=== PATIENT | male | born 1955 | race Caucasian/White ===

== ENCOUNTER 2023-09-08 16:22 | Inpatient (IN) | payer OTHER, SELFPAY ==
[2023-09-08 13:29] VITALS: BP 123/77
--- NOTE | 2023-09-08 13:45 | ED.GENMED ---
History of Present Illness
<Jorge A Merlos PA-C - Last Filed: 09/08/23 17:29>
General
Chief Complaint: Skin Problem
Source: patient
Time Seen by Provider: 09/08/23 13:35
Travel History
Have you had any contact with someone who has COVID-19?: No
Do you have any symptoms of coronavirus? Fever > 100 degrees, chills, cough, shortness of breath, sore throat, loss of taste or smell, muscle aches, or headache?: No
History of Present Illness
History of Present Illness:
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 Patient reports that in June he had a visit with his perlite grinder who was injecting his elbow
with what the patient believes to be a steroid and notes that the area had been doing quite well. He states in November on a follow-up visit his perlite grinder was happy with how the elbow looked so did not provide the patient with any injection at that
time. Over the last 2 months patient started noticing increased redness and a small opening to the area and over the last week or so noticed increased drainage. Patient attempted to make an appointment with his perlite grinder but was unable to be
seen but his perlite grinder did call him in a prescription for Bactrim last night and patient is taking 2 total doses of this. He went and saw his primary care provider today who recommended the patient come to the emergency department for labs and
imaging. Patient denies any fevers, chills, rigors. He notes he is able to range of motion his left upper extremity without any significant pain. Denies any trauma or any other concerns.
Past History
<Jorge A Merlos PA-C - Last Filed: 09/08/23 17:29>
Past History
ED Past Medical History: IDDM
ED Past Surgical History: Other
Social History
Tobacco: Non-smoker
Alcohol: None
Drug: None
Personal:
Living: with family
Review of Systems
<Jorge A Merlos PA-C - Last Filed: 09/08/23 17:29>
Review of Systems
All Other Systems: ROS reviewed and negative except as documented in HPI and ROS
Phy Exam
<Jorge A eMrlos PA-C - Last Filed: 09/08/23 17:29>
Physical Exam
Physical Exam:
GENERAL: Alert , in no apparent distress
EYE: conjunctiva clear
Head: Normocephalic atraumatic
NECK: Supple,
ENT: mmm.
LUNGS: no acute respiratory distress
NEUROLOGICAL: Alert and oriented
SKIN: Warm and dry, left elbow along the olecranon and has erythema with a small open wound that is circumferential and measures proximately 8 mm in size, small purulent drainage is expressed when palpated but the surrounding tissues are dry.
MUSCULOSKELETAL: well perfused. Patient allows for full active and passive range of motion of the left elbow without any significant pain. Extremities otherwise warm and well-perfused and neurovascularly intact.
PSYCH: Normal and appropriate interaction.
Scores
<Jorge A Merlos PA-C - Last Filed: 09/08/23 17:29>
Heart Failure Risk
Heart Failure Risk Score: Not Applicable
Heart Score for Chest Pain Patients
STEMI patient?: Not applicable
Withdrawal Assessment of Alcohol
Withdrawal Assessment Completed?: Not applicable
Course
<ANNE-MARIE Parrish Last Filed: 09/08/23 17:29>
Orders/Labs/Results
Orders:
Orders
09/08/23 13:44
CR Elbow - Left Min 3 Views Urgent
Comment:
Reason For Exam: infection overlying olecranon
09/08/23 14:10
Basic Metabolic Panel Urgent
CRP [C-Reactive Protein] Urgent
Complete Blood Count/With Diff Urgent
ESR [Erythrocyte Sed Rate] Urgent
Wound Culture [Wound/Abscess/Other Culture] Urgent
YOMAIRA Source: Elbow
Specimen Description: Left
Date Specimen was Collected: 09/08/23
Time Specimen was Collected: 14:07
09/08/23 14:46
Piperacillin/Tazo 3.375 Gram [Zosyn] 3.375 gram in 50 ml IV NOW
09/08/23 14:51
Vancomycin [Vancocin] 2,000 mg 0.9% Sodium Chloride 500 ml [Nss] 500 ml IV NOW
09/08/23 Dinner
2000 calorie (17 carb) Diabetic
At Your Request: Limited Participation
09/08/23 15:53
INFECTIOUS DISEASE CONSULT Routine
Consulting Provider: Miriam Sutton
Was physician already notified: Yes
ORTHOPEDIC CONSULT Routine
Consulting Provider: Zachary Swenson
Was physician already notified: Yes
09/08/23 16:05
Admit/Transfer Patient As Directed
Co-Sign Provider:
Level of Care: Inpatient admission
Assign to:: Medical/Surgical
Physician / Group: Zoey
Diagnosis: Left Elbow Wound
Reason for Hospitalization: Ortho consult, ID consult, IV abx
Expected length of stay greater than two midnights?: Yes
ELOS- Estimated Length of Stay in days: 3
I certify the patient meets the requirements for IP care: Yes
09/08/23 16:09
Code Status As Directed
Resuscitation Status: Full Code
09/08/23 17:54
Acetaminophen [Tylenol] 650 mg PO Q4HPRN PRN
Dextrose 50%-Water [Dextrose 50% Syringe] 12.5 grams IV [id number] PRN
Glucagon [GlucaGen] 1 mg IM PRN PRN
Insulin Aspart Corrective Low [Novolog Flexpen-Low Resistance] See Protocol SC AC
09/08/23 17:54
Activity As Directed
Activity Level: Out of Bed-Early Mobility
With Assistance
Bedside Glucose Monitoring As Directed
Frequency: AC&HS
Comment: Change to q6h if pt on TPN, tube feeding or not eating
I&O [Intake/ Output] As Directed
Frequency: q12h
Vital Signs As Directed
Frequency: Per unit guidelines
Weight As Directed
Frequency: Daily
DX Deep Vein Thrombosis Video Routine
09/08/23 18:00
Enoxaparin Sodium [Lovenox] 40 mg SC QPM
09/08/23 22:00
Metoprolol Xl [Toprol Xl] 25 mg PO HS
Piperacillin/Tazo 3.375 Gram [Zosyn] 3.375 gram in 50 ml IV Q6H
Tamsulosin [Flomax] 0.4 mg PO HS
09/09/23 07:03
Basic Metabolic Panel IN AM
Complete Blood Count/No Diff IN AM
Glycohemoglobin (HgbA1c) IN AM
09/11/23 12:24
MR Left Up Ext Joint W/o & W Routine
Reason For Exam: left elbow wound, possible osteo
Recent pill cam endoscopy?: No
Abnormal Lab Results
09/08/23
14:10
RBC 4.33 L 10^6/uL
(4.70-6.10)
MCV 95.2 H fL
(80.0-94.0)
MCH 31.9 H pg
(27.0-31.0)
MPV 10.5 H fL
(7.4-10.4)
Absolute Monos (auto) 0.9 H 10^3/uL
(0.1-0.6)
Monocytes % 11.7 H %
(1.7-9.3)
ESR 54 H mm/hour
(0-20)
Glucose 106 H mg/dl
(70-99)
C-Reactive Protein 23.90 H mg/L
(0.0-10.00)
09/08/23 14:10
09/08/23 14:10
Vital Signs
Initial and Last Documented VS:
Initial Vital Signs
Temp Pulse Resp BP Pulse Ox
97.2 F 70 16 123/77 98
09/08/23 13:29 09/08/23 13:29 09/08/23 13:29 09/08/23 13:29 09/08/23 13:29
Last Documented Vital Signs
Temp Pulse Resp BP Pulse Ox
97.6 F 78 18 146/79 98
09/11/23 14:30 09/11/23 14:30 09/11/23 14:30 09/11/23 14:30 09/11/23 14:30
<Jen Chan MD - Last Filed: 09/11/23 18:41>
Orders/Labs/Results
Orders:
Orders
09/08/23 13:44
CR Elbow - Left Min 3 Views Urgent
Comment:
Reason For Exam: infection overlying olecranon
09/08/23 14:10
Basic Metabolic Panel Urgent
CRP [C-Reactive Protein] Urgent
Complete Blood Count/With Diff Urgent
ESR [Erythrocyte Sed Rate] Urgent
Wound Culture [Wound/Abscess/Other Culture] Urgent
YOMAIRA Source: Elbow
Specimen Description: Left
Date Specimen was Collected: 09/08/23
Time Specimen was Collected: 14:07
09/08/23 14:46
Piperacillin/Tazo 3.375 Gram [Zosyn] 3.375 gram in 50 ml IV NOW
09/08/23 14:51
Vancomycin [Vancocin] 2,000 mg 0.9% Sodium Chloride 500 ml [Nss] 500 ml IV NOW
09/08/23 Dinner
2000 calorie (17 carb) Diabetic
At Your Request: Limited Participation
09/08/23 15:53
INFECTIOUS DISEASE CONSULT Routine
Consulting Provider: Miriam Sutton
Was physician already notified: Yes
ORTHOPEDIC CONSULT Routine
Consulting Provider: Zachary Swenson
Was physician already notified: Yes
09/08/23 16:05
Admit/Transfer Patient As Directed
Co-Sign Provider:
Level of Care: Inpatient admission
Assign to:: Medical/Surgical
Physician / Group: Sheu
Diagnosis: Left Elbow Wound
Reason for Hospitalization: Ortho consult, ID consult, IV abx
Expected length of stay greater than two midnights?: Yes
ELOS- Estimated Length of Stay in days: 3
I certify the patient meets the requirements for IP care: Yes
09/08/23 16:09
Code Status As Directed
Resuscitation Status: Full Code
09/08/23 17:54
Acetaminophen [Tylenol] 650 mg PO Q4HPRN PRN
Dextrose 50%-Water [Dextrose 50% Syringe] 12.5 grams IV [id number] PRN
Glucagon [GlucaGen] 1 mg IM PRN PRN
Insulin Aspart Corrective Low [Novolog Flexpen-Low Resistance] See Protocol SC AC
09/08/23 17:54
Activity As Directed
Activity Level: Out of Bed-Early Mobility
With Assistance
Bedside Glucose Monitoring As Directed
Frequency: AC&HS
Comment: Change to q6h if pt on TPN, tube feeding or not eating
I&O [Intake/ Output] As Directed
Frequency: q12h
Vital Signs As Directed
Frequency: Per unit guidelines
Weight As Directed
Frequency: Daily
DX Deep Vein Thrombosis Video Routine
09/08/23 18:00
Enoxaparin Sodium [Lovenox] 40 mg SC QPM
09/08/23 22:00
Metoprolol Xl [Toprol Xl] 25 mg PO HS
Piperacillin/Tazo 3.375 Gram [Zosyn] 3.375 gram in 50 ml IV Q6H
Tamsulosin [Flomax] 0.4 mg PO HS
09/09/23 07:03
Basic Metabolic Panel IN AM
Complete Blood Count/No Diff IN AM
Glycohemoglobin (HgbA1c) IN AM
09/11/23 12:24
MR Left Up Ext Joint W/o & W Routine
Reason For Exam: left elbow wound, possible osteo
Recent pill cam endoscopy?: No
Abnormal Lab Results
09/08/23
14:10
RBC 4.33 L 10^6/uL
(4.70-6.10)
MCV 95.2 H fL
(80.0-94.0)
MCH 31.9 H pg
(27.0-31.0)
MPV 10.5 H fL
(7.4-10.4)
Absolute Monos (auto) 0.9 H 10^3/uL
(0.1-0.6)
Monocytes % 11.7 H %
(1.7-9.3)
ESR 54 H mm/hour
(0-20)
Glucose 106 H mg/dl
(70-99)
C-Reactive Protein 23.90 H mg/L
(0.0-10.00)
09/08/23 14:10
09/08/23 14:10
Vital Signs
Initial and Last Documented VS:
Initial Vital Signs
Temp Pulse Resp BP Pulse Ox
97.2 F 70 16 123/77 98
09/08/23 13:29 09/08/23 13:29 09/08/23 13:29 09/08/23 13:29 09/08/23 13:29
Last Documented Vital Signs
Temp Pulse Resp BP Pulse Ox
97.6 F 78 18 146/79 98
09/11/23 14:30 09/11/23 14:30 09/11/23 14:30 09/11/23 14:30 09/11/23 14:30
<Jorge A Merlos PA-C - Last Filed: 09/08/23 17:29>
MDM/Problems Addressed
Differential Diagnosis Includes:
Cellulitis, abscess, minimal concern for septic joint given no fevers and patient allows for full range of motion without any difficulty
MDM/Problems Addressed:
68-year-old male presenting the emergency for evaluation of a wound that is for the most part chronic but with an acute potential infection over the last few weeks. Patient is only taken 2 total doses of Bactrim. He is afebrile and has full range
of motion of the left elbow as my suspicion for septic joint is pretty minimal. I was able to take a wound culture of the small purulence expressed. Will check labs including inflammatory markers and an x-ray of the left elbow. Disposition
pending.
Chronic conditions affecting care: DM
<Jorge A Merlos PA-C - Last Filed: 09/08/23 17:29>
*Radiology
Radiology exam reviewed: preliminary read by ED provider (Degenerative changes versus bony demineralization)
*Pulse Oximetry
Patient hypoxic: no
*Critical Care Note
Total Time (30-74mins, 75-104mins- exclusive of procedures): Not Applicable
<ANNE-MARIE Parrish Last Filed: 09/08/23 17:29>
Patient Management
Discussion with other providers: Hospitalist
Escalation/DeEscalation of care consider admission/obs:
There are some concerns on patient's x-ray for possible osteomyelitis versus degenerative changes versus chronic changes from patient's necrobiosis. Given his acute symptoms will treat with IV antibiotics. Hospitalist is aware and accepts for
continued evaluation and treatment.
ED Attending Note
<ANNE-MARIE Parrish Last Filed: 09/08/23 17:29>
-
Portions of this chart may have been created with voice recognition software.� Occasional wrong word or��sound alike� substitutions may have occurred due to the inherent limitations of voice recognition software.
<Jen Chan MD - Last Filed: 09/11/23 18:41>
ED Attending Note
Patient seen and examined by attending physician: Yes
I performed the substantive portion of visit, reviewed & personally made and approve the management plan that is documented in note by myself or NATO.: Yes
ED Attending Note:
68 yr old male with L elbow redness and drainage assoc with mild pain for months...getting worse and now foul smelling. Doctor called in bactrim over phone, seen by pcp today and referred to ED for presumed infx. Pt denies
f/c/numb/tingling/trauma. He reports hx of injxs into elbow by derm q few months (PCP notes for necrobiosis?), last one a few months ago. Pt with hx of DM. On exam, L elbow at olecranon area with redness/sl warmth, pinpoint open area with sl
drainage (not foul smelling at this time). No sreaking, no fluctuance/crepitus. FROM of elbow without pain. Mild/mod ttp. Suspect cellulitis possible septic bursitis, less likely septic arthritis given relatively painless ROM. Will need iv abx,
ortho/ID to see (not emergently), hospiatlist admit.
Discharge Plan
Departure
Patient Disposition: Admit
Date of Disposition: 09/08/23
Time of Disposition: 14:48
Presentation/result/management discussed w/ accepting MD/DO: Hospitalist
Discharge Problem:
Cellulitis of left elbow, Abscess of left elbow
Interventions
Interventions:
*Risk Screen - Suicide Last Done: 09/08/23 13:29
*General Assessment Last Done: 09/08/23 13:29
*Neglect/Abuse Screening Last Done: 09/08/23 13:29
ED- Fall Risk Assessment Last Done: 09/08/23 14:20
*ED COVID-19 Vaccine History Last Done: 09/08/23 14:20
*Nursing Disposition Last Done: 09/08/23 17:44
ED-Skin Assessment Last Done: 09/08/23 14:20
Discharge Date and Time
Discharge Date/Time: 09/08/23 17:45
[2023-09-08 14:20] VITALS: BMI 31.8
[2023-09-08 14:32] LABS: % Basophils 0.8 % (0-2); % Eosinophils 1.2 % (0-6); % Immature Granulocytes 0.1 % (0-0.5); % Lymphocytes 28.6 % (20.5-51.1); % Monocytes 11.7 % (1.7-9.3); % Neutrophils 57.6 % (42.2-75.2); Absolute Basophils 0.1 10^3/uL (0-0.2); Absolute Eosinophils 0.1 10^3/uL (0-0.7); Absolute Lymphocytes 2.2 10^3/uL (1.2-3.4); Absolute Monocytes 0.9 10^3/uL (0.1-0.6); Absolute Neutrophils 4.3 10^3/uL (1.4-6.5); Hematocrit 41.2 % (39.0-52.0); Hemoglobin 13.8 g/dL (13.0-18.0); Mean Corp Hgb Conc. 33.5 g/dL (33.0-37.0); Mean Corpuscular Hgb 31.9 pg (27.0-31.0); Mean Corpuscular Volume 95.2 fL (80.0-94.0); Mean Platelet Volume 10.5 fL (7.4-10.4); Nucleated Red Blood Cells % 0 % (-); Platelet Count 231 10^3/uL (130-400); Red Blood Cell Count 4.33 10^6/uL (4.70-6.10); Red Cell Dist. Width 12.5 % (11.5-14.5); White Blood Cell Count 7.5 10^3/uL (4.8-10.8)
[2023-09-08 14:47] LABS: Blood Urea Nitrogen 20 mg/dl (9-20); Calcium 9.3 mg/dl (8.4-10.2); Carbon Dioxide 27 mmol/L (22-30); Chloride 103 mmol/L (98-107); Estimated Creatinine Clearance 94 ml/min; Glucose 106 mg/dl (70-99); Potassium 4.5 mmol/L (3.5-5.1); Sodium 135 mmol/L (135-145); eGFR > 60.00
[2023-09-08 14:56] LABS: Erythrocyte Sed Rate 54 mm/hour (0-20)
[2023-09-08] MEDS: ZOSYN 50 IV ×2 (15:15→22:11)
[2023-09-08] MEDS: VANCOCIN 540 MG IV (15:36)
--- NOTE | 2023-09-08 16:13 | HPS.HSE ---
Addendum entered and electronically signed by Lazaro Greer MD 09/08/23 18:16:
I saw and examined the patient.
The CORPORATE ETHICS OFFICER or PA's note was reviewed and I agree with the note.
Comment:
68M insulin-dependent type II diabetes, left Elbow necrobiosis, CHF p/w oozing wound left elbow. Reports Left elbow necrobiosis several years receiving steroid injections every [address] judge. Last injection 2 months ago. Reports
elbow oozing white purulent fluid for a few weeks. Referred to ED by PCP after office visit. ED XR concerning for possible osteomyelitis Soft tissue infection, possible septic arthritis/bursitis though less likely given overall clinical picture.
VSS afebrile. Non-toxic appearing. Elbow pain mild. Denies fever chills nausea vomiting diarrhea constipation. Labs unremarkable.
Physical Exam
General: No pallor, cyanosis, or jaundice.
HEENT: Throat clear. PERRLA Normocephalic atraumatic
NECK: Supple. No JVD Carotid Bruits
RESPIRATORY: Lungs clear to auscultation. No crackles wheezes stridor
CVS: S1, S2 normal. RRR. No murmur, rub or gallop.
ABDOMEN: Soft, non-tender. No distension. BS+/normal.
EXTREMITIES: No peripheral cyanosis or edema. Left elbow erythema superficial pustule noted
LABORER GOLF COURSE: AOx3. 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
#Left Elbow Wound likely superficial infection
#Possible Osteomyelitis noted on CXR
#Diabetes
#hx hF
Follow up MRI
cont empiric abx for now
ID eval
Ortho eval
glycemic control
cont home metoprolol
Original Note:
Family Physician
-
Family Physician: Aydin Allen
Chief Complaint
-
Left Elbow Wound
History of Present Illness
Patient is a 68 year old male with PMH of insulin-dependent type II diabetes, necrobiosis, and congestive heart failure with recovered ejection fraction who presents to the ED complaining of oozing from a wound on his left elbow. Patient says he has
had this wound for several years and was receiving steroid injections every [address] judge. His last injection was about 2 months ago. Patient reports that the wound has been oozing white purulent fluid for a few weeks. He called
his municipal court judge yesterday who is on vacation. He then called his PCP who prescribed Bactrim. He saw his PCP in the office today who sent him to the ED. He admits to mild pain and achiness with movement of the elbow joint. He has felt at his
baseline health otherwise and says his blood sugars have been controlled. He denies fever, chills, sweats, reduced range of motion of left elbow, and known wounds elsewhere on his body.
Medical History
Past Medical History
Past Medical History: Reports Other
Additional Past Medical History:
Diabetes Mellitus
Chronic Heart Failure with Recovered EF
BPH
Past Surgical History: Reports Other
Additional Past Surgical History:
Left Eye Surgery
Social History
Tobacco: Non-smoker
Alcohol: Occasional
Family History
Family History: Not pertinent
Allergies / Home Medications
Allergies reflects when Allergies were last updated in [facility].
Home Medications with original date entered in [facility]
Allergy/Medication List:
Allergies
Allergy/AdvReac Type Severity Reaction Status Date / Time
bee venom protein (honey bee) Allergy Swelling Verified 09/08/23 13:29
shellfish derived Allergy Swelling Verified 09/08/23 13:28
Home Medications
aspirin 81 mg tablet,delayed release 162 mg PO DAILY Blood Clot Prevention/Tx 09/08/23
brimonidine 0.2 % eye drops 1 drp LEFT EYE BID Eye Condition 09/08/23
insulin glargine 100 unit/mL (3 mL) subcutaneous pen (Basaglar KwikPen U-100 Insulin) 35 unit SC HS Diabetes 09/08/23
metoprolol succinate 25 mg tablet,extended release 24 hr (Toprol XL) 25 mg PO HS Blood Pressure 09/08/23
prednisolone acetate 1 % eye drops,suspension 1 drp LEFT EYE DAILY Eye Condition 09/08/23
sulfamethoxazole 800 mg-trimethoprim 160 mg tablet (Bactrim DS) 1 tab PO BID Infection 09/08/23
tamsulosin 0.4 mg capsule (Flomax) 0.4 mg PO HS Urinary Issue 09/08/23
Review of Systems
-
A 12 point ROS was completed and negative except as noted: Yes
Respiratory: Denies Cough or Trouble Breathing
Cardiac: Denies Chest Pain or Palpitations
Physical Exam
Vital Signs
Vital Signs
Temp Pulse Resp BP Pulse Ox
97.2 F 70 16 123/77 98
09/08/23 13:29 09/08/23 13:29 09/08/23 13:29 09/08/23 13:29 09/08/23 13:29
Physical Exam
General: Comfortable and Conversant
HEENT: NormoCephalic and Moist mucous membranes
Respiratory: Clear and Non Labored Respirations
Cardiac: S1/S2 and Regular Rhythm
GI: Soft and Non Tender
Rectal: Deferred by Provider
Musculoskeletal: No Clubbing, No Cyanosis, No Edema and Other (Full range of motion left elbow)
Skin: Warm, Dry and Other (Left elbow with small open area draining slightly purulent material; Surrounding discoloration of left elbow appears more chronic than acute)
Neuro: Awake, Alert, Oriented and Nonfocal/grossly intact
Laboratory Results
-
09/08/23 14:10
09/08/23 14:10
Data Reviewed
-
Diagnostic Radiology: Report Reviewed by me
Lab Data: Labs Reviewed by me
Impression/Plan
-
Left Elbow Wound
-X-ray raises concern for underlying osteomyelitis
-Consult Orthopedics
-Consult Infectious Disease
-Check Left Upper Ext MRI
-Continue vancomycin and zosyn
Diabetes Mellitus, Type II
-Check HgbA1c
-Continue Lantus
-Monitor sugars and continue coverage insulin
Chronic Heart Failure with Recovered EF
-Continue Toprol XL
BPH
-Continue Flomax
DVT proph: Lovenox
[2023-09-08 17:30] VITALS: BMI 30.5
[2023-09-08 17:49] VITALS: BMI 30.5
[2023-09-08 17:53] VITALS: BP 154/98
[2023-09-08 17:55] VITALS: BMI 30.5
[2023-09-08 18:00] LABS: Glucose - Point of Care 84 mg/dl (70-99)
[2023-09-08] MEDS: NOVOLOG FLEXPEN-LOW RESISTANCE SC (18:00)
[2023-09-08] MEDS: LOVENOX 40 MG SC (18:09)
--- NOTE | 2023-09-08 18:15 | W.PN.UPDATE ---
Update Note
Progress Note Update
Full consult dictated. 68 yo male presents to ER today with left olecranon draining wound for 2 weeks. Has been treating with his senior administrative services officer for years and has been receiving multiple cortisone injections about the left olecranon region for
'necrobiosis.' He denies having a biopsy of the region in the past. He called his senior administrative services officer when he developed drainage. He spoke to the senior administrative services officer and was not seen. When he contacted the senior administrative services officer again, his doctor was on vacation.
He was seen by his PCP who referred him to an ER. He denies fever. He is diabetic and is on insulin. He is seen in the presence of his . He had taken oral antibiotics prior to admission. Culture was obtained in the ER and patient started on
IV antibiotics. Xrays reveal bony fragmentation about the olecranon with irregular appearing bone about the olecranon and proximal ulna. MRI was ordered and ID consulted along with orthopedics. PE: AVSS. No acute distress. No signs of sepsis.
Olecranon region with open wound with minimal drainage. Skin is very indurated and not very healthy appearing. Nontender ROM of the elbow joint. Will follow. Await MRI findings. Possible large area of osteomyelitis about the elbow. Difficult
skin issue for healing wound with longstanding cortisone injections over years. Continue IV antibiotics.
--- NOTE | 2023-09-08 19:47 | PHA.VAN.IN ---
Assessment
- Assessment
Renal Function: Unknown baseline
Concomitant Antimicrobials: piperacillin/tazobactam
AUC Dosing Plan
- Dosing Variables
Dosing Weight (kg): 88
Dosing CrCl (ml/min): 94
Vd coefficient (L/kg): 0.7
- Empiric Dosing
Initial / Loading Dose: vanc 2000mg
Maintenance Regimen: vanc 1000mg Q12 starting 09/08 06
Estimated AUC (mcg*h/mL): 410
Estimated Peak (mcg*h/mL): 25.8
Estimated Trough (mcg/ml): 10.4
Estimated Half Life (H): 8.4
- Monitoring
No levels ordered at this time: consider levels in next few days
Pharmacokinetics Vancomycin I
- -
Patient Age: 68
Patient Sex: Male
Vancomycin Day #: 1
Indication: Skin And Soft Tissue
Requesting Provider: Renae London
Pertinent Antimicrobial Allergies:
no pertinent antimicrobial allergies
Height / Weight:
Height 5 ft 7 in
Actual Weight 88.133 kg
- Vital Signs / Lab Results
Temp Pulse Resp BP Pulse Ox
97.7 F 79 18 154/98 96
09/08/23 17:53 09/08/23 17:53 09/08/23 17:53 09/08/23 17:53 09/08/23 17:53
Lab Results - Hematology
09/08/23
14:10
WBC 7.5
Lab Results - Chemistry
09/08/23
14:10
BUN 20
Creatinine 0.8
Estimated Creat Clear 94
Microbiology Results
09/08/23 14:10 Gram Stain - Preliminary
Elbow - Left
[2023-09-08 21:29] LABS: Glucose - Point of Care 188 mg/dl (70-99)
[2023-09-08 21:32] LABS: Glucose - Point of Care 197 mg/dl (70-99)
[2023-09-08] MEDS: LANTUS 0.349999999999999978 UNITS SC (22:11)
[2023-09-08] MEDS: FLOMAX 0.400000000000000022 MG PO (22:11)
[2023-09-08] MEDS: TOPROL XL 25 MG PO (22:11)
[2023-09-08 23:00] VITALS: BP 124/76
[2023-09-09] MEDS: ZOSYN 50 IV ×4 (03:54→22:22)
[2023-09-09 06:00] VITALS: BMI 30.8
[2023-09-09] MEDS: VANCOCIN 200 IV ×2 (06:00→17:20)
[2023-09-09 07:00] VITALS: BP 110/73
--- NOTE | 2023-09-09 07:17 | W.PN.HOSP.TC ---
Today's Communication/Plan
-
cont abx as per ID
wound care as per Orthopedic
Follow up MRI left elbow
follow cultures
glycemic control
Assessment / Plan
Assessment / Plan
Physical Exam
General: No pallor, cyanosis, or jaundice.
HEENT: Throat clear. PERRLA Normocephalic atraumatic
NECK: Supple. No JVD Carotid Bruits
RESPIRATORY: Lungs clear to auscultation. No crackles wheezes stridor
CVS: S1, S2 normal. RRR.� No murmur, rub or gallop.
ABDOMEN: Soft, non-tender. No distension. BS+/normal.
EXTREMITIES: No peripheral cyanosis or edema. Left elbow dressing in place clean dry intact
STRUCTURED CABLING TECHNICIAN: AOx3. 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
68M insulin-dependent type II diabetes, left Elbow necrobiosis, CHF p/w oozing wound left elbow.� Reports Left elbow necrobiosis several years receiving steroid injections every 6 months from his desktop specialist. Last injection 2 months ago. Reports
elbow oozing white purulent fluid for a few weeks. Referred to ED by PCP after office visit. ED XR concerning for possible osteomyelitis Soft tissue infection, possible septic arthritis/bursitis though less likely given overall clinical picture.�
VSS afebrile.� Non-toxic appearing.� Elbow pain mild.� Denies fever chills nausea vomiting diarrhea constipation.� Labs unremarkable.�
Left Elbow Wound
Possible Osteomyelitis
-X-ray suggestive osteomyelitis
-Orthopedics eval appreciated
-ID eval appreciated cont Vanc zosyn follow cultures
-Left Upper Ext MRI pending
Diabetes Mellitus, Type II
-HgbA1c 7.9
-Continue Lantus
-Monitor sugars and continue coverage insulin
Chronic Heart Failure with Recovered EF
-Continue Toprol XL
BPH
-Continue Flomax
DVT proph: Lovenox
I spent a total of 50 minutes with the patient or on the floor. More than 50% of this time involved counseling and coordination of care.
Anticipated Discharge: 24 - 48 hours
Subjective/Interval History
-
Date of Service: September 09, 2023
No acute distress resting comfortably in bed. denies new acute issues at this time. Overall reports feeling well at this time.
Objective Data
-
Labs:
Laboratory Results
09/09/23
07:03
WBC Pending
Hgb Pending
Hct Pending
Plt Count Pending
Sodium Pending
Potassium Pending
Chloride Pending
Carbon Dioxide Pending
BUN Pending
Creatinine Pending
Glucose Pending
Calcium Pending
Vital Signs:
Vital Signs
Temp Pulse Resp BP Pulse Ox
98.7 F 82 16 124/76 100
09/08/23 23:00 09/08/23 23:00 09/08/23 23:00 09/08/23 23:00 09/08/23 23:00
[2023-09-09 07:18] LABS: Hemoglobin 13.6 g/dL (13.0-18.0); Mean Corp Hgb Conc. 34.9 g/dL (33.0-37.0); Mean Corpuscular Hgb 32.3 pg (27.0-31.0); Mean Corpuscular Volume 92.6 fL (80.0-94.0); Mean Platelet Volume 10.4 fL (7.4-10.4); Platelet Count 197 10^3/uL (130-400); Red Blood Cell Count 4.21 10^6/uL (4.70-6.10); Red Cell Dist. Width 12.6 % (11.5-14.5)
--- NOTE | 2023-09-09 07:54 | W.PN.UPDATE ---
Update Note
Progress Note Update
Patient doing well. AVSS. LUE: drainage noted on dressing and dressing changed. Wound unchanged. ROM of elbow without pain. WBC 5. On Vancomycin and Zosyn. Xrays suspicious for chronic osteomyelitis. Await MRI. Will follow.
[2023-09-09 07:58] LABS: Glucose - Point of Care 130 mg/dl (70-99)
[2023-09-09 08:04] LABS: Blood Urea Nitrogen 15 mg/dl (9-20); Carbon Dioxide 26 mmol/L (22-30); Chloride 102 mmol/L (98-107); Estimated Creatinine Clearance 93 ml/min; Glucose 138 mg/dl (70-99); Potassium 4.4 mmol/L (3.5-5.1); Sodium 135 mmol/L (135-145); eGFR > 60.00
[2023-09-09] MEDS: NOVOLOG FLEXPEN-LOW RESISTANCE SC (08:32)
[2023-09-09 08:43] LABS: Glycohemoglobin (HgbA1c) 7.9 % (4.0-5.6)
--- NOTE | 2023-09-09 08:48 | PHA.VAN.FU ---
Vancomycin Assessment / Plan
- Assessment
Renal Function: Stable
WBC's are: WNL
In the past 24 hrs, patient has been: Afebrile
Concomitant Antimicrobials: ZOSYN
- Dosing Plan
Continue: 1000MG Q12H
- Monitoring Plan
Peak Level: 09/09 @2030
Trough Level: 09/10 @0530
- Follow Up
Pharmacy will continue to follow.
Vancomycin Follow UP
- -
Patient Age: 68
Patient Sex: Male
Vancomycin Day #: 2
Indication: Skin And Soft Tissue
Requesting Provider: Renae London
Pertinent Antimicrobial Allergies:
no pertinent antimicrobial allergies
Height / Weight:
Height 5 ft 7 in
Actual Weight 89.159 kg
- Vital Signs / Lab Results
Temp Pulse Resp BP Pulse Ox
98.0 F 63 16 110/73 97
09/09/23 07:00 09/09/23 07:00 09/09/23 07:00 09/09/23 07:00 09/09/23 07:00
Lab Results - Hematology
09/08/23 09/09/23
14:10 07:03
WBC 7.5 5.0
Lab Results - Chemistry
09/08/23 09/09/23
14:10 07:03
BUN 20 15
Creatinine 0.8 0.8
Estimated Creat Clear 94 93
Microbiology Results
09/08/23 14:10 Wound Culture - Preliminary
Elbow - Left Gram negative bacilli
Gram Stain - Preliminary
--- NOTE | 2023-09-09 09:49 | CM ---
Patient seen bedside.
IA completed.
Patient lives with spouse in a 3 story home, no difficulty with stairs.
Patient drives and works.
No assistive devices.
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
Denies home care needs.
PCP: Dr Goldberg
Pharmacy: [facility] [address], [place]
Plan: home no needs anticipated.
[2023-09-09 11:46] LABS: Glucose - Point of Care 176 mg/dl (70-99)
[2023-09-09] MEDS: NOVOLOG FLEXPEN-LOW RESISTANCE 1 UNITS SC ×2 (11:57→17:40)
--- NOTE | 2023-09-09 13:09 | CON.ID ---
Consultation
-
Date/Time Consultation Requested: 09/08/23 15:33
Date/Time Consultation Performed: 09/09/23 13:09
Requesting Provider: Lita
Performing Provider: Dr Sutton
Reason for Consultation: bursitis
Chief Complaint / Past History
Chief Complaint
Left Elbow Wound
History of Present Illness
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 He reports a 2 month history of redness, fistula
with drinage. He has been off of steroids for about 2 months. He was recently prescribed bactrim and took two doses without improvement. No fevers, chills or rigors.
Since arrival here he has been afebrile, bp stable, without leukocytosis or L shift, esr 54, cr 0.8, crp 24, wound cx gram stain, moderate GPCs few GNR: culture few gnr, elbow xray: osteopenia over the olecranon process - possible osteomyelitis,
currently on vanc and zosyn. ID is consulted for assistance with managmenet
Past History
Additional Past Medical History:
�Significant for insulin-dependent diabetes,
as well as congestive heart failure. The patient also has a
diagnosis of 'necrobiosis.' Also patient has a history of benign
prostatic hypertrophy.
Additional Past Surgical History:
left eye surgery.
Allergy History:
bee venom protein (honey bee) Allergy (Verified 09/08/23 13:29)
Swelling
shellfish derived Allergy (Verified 09/08/23 13:28)
Swelling
Medications Reviewed: Yes
Social History
Tobacco: Non-Smoker
Alcohol: None
Personal:
Family History
Family History: Not Pertinent
Review of Systems
Review of Systems
General: Negative Fever or Chills
All systems: All other systems were reviewed and were negative
Vital Signs
Temp Pulse Resp BP Pulse Ox
98.0 F 63 16 110/73 99
09/09/23 07:00 09/09/23 07:00 09/09/23 07:00 09/09/23 07:00 09/09/23 10:39
Physical Exam
Physical Exam
Constitutional: No Acute Distress
Cardiovascular: Regular Rate and S1/S2; Negative Murmur or Rub
Pulmonary: Clear and Symmetric; Negative Wheezes, Rales or Rhonchi
Gastrointestinal: Soft, Non Tender, Non Distended and Normal Bowel Sounds
Skin: Warm and Dry; Negative Rash or Jaundice
Wound: Other (fistula over the L elbow with probe to bone and tunneling, some surrounding erythema)
Lab / Diagnostic Study Results
09/09/23 07:03
09/09/23 07:03
Abs Immat Gran (auto) 0.0 10^3/uL (0-0.05) 09/08/23 14:10
Absolute Neuts (auto) 4.3 10^3/uL (1.4-6.5) 09/08/23 14:10
Absolute Lymphs (auto) 2.2 10^3/uL (1.2-3.4) 09/08/23 14:10
Absolute Monos (auto) 0.9 10^3/uL (0.1-0.6) H 09/08/23 14:10
Absolute Basos (auto) 0.1 10^3/uL (0-0.2) 09/08/23 14:10
Immature Gran % 0.1 % (0-0.5) 09/08/23 14:10
Neutrophils % 57.6 % (42.2-75.2) 09/08/23 14:10
Lymphocytes % 28.6 % (20.5-51.1) 09/08/23 14:10
Monocytes % 11.7 % (1.7-9.3) H 09/08/23 14:10
Eosinophils % 1.2 % (0-6) 09/08/23 14:10
Basophils % 0.8 % (0-2) 09/08/23 14:10
ESR 54 mm/hour (0-20) H 09/08/23 14:10
C-Reactive Protein 23.90 mg/L (0.0-10.00) H 09/08/23 14:10
Microbiology Results
Micro:
09/08/23 14:10 Wound Culture - Preliminary
Elbow - Left Gram negative bacilli
Gram Stain - Preliminary
09/08/23 18:04 MRSA Screen - Pending
Nose
Assessment / Plan
Suspected Bursitis
Probable osteomyelitis
Dm2 uncontrolled
Reported history of necrobiosis of the elbow
- wound cx: gram stain moderate gpcs and few gnr on gram stain
- mrsa screen pending
- blood cultures x2
- outpatient recommend tight glucose control
- MRI
- continue vanc/zosyn
- appreciate orthopedics input - agree that wound healing may be challenging
[2023-09-09 15:00] VITALS: BP 131/79
[2023-09-09 16:40] LABS: Glucose - Point of Care 180 mg/dl (70-99)
[2023-09-09] MEDS: LOVENOX 40 MG SC (17:21)
[2023-09-09 21:26] LABS: Glucose - Point of Care 161 mg/dl (70-99)
[2023-09-09] MEDS: FLOMAX 0.400000000000000022 MG PO (22:22)
[2023-09-09] MEDS: TOPROL XL 25 MG PO (22:22)
[2023-09-09] MEDS: LANTUS 0.349999999999999978 UNITS SC (22:23)
[2023-09-09 22:50] VITALS: BP 128/81
[2023-09-10] MEDS: ZOSYN 50 IV ×2 (04:32→10:31)
[2023-09-10 06:00] VITALS: BMI 30.1
[2023-09-10] MEDS: VANCOCIN 200 IV (06:03)
--- NOTE | 2023-09-10 06:57 | W.PN.HOSP.TC ---
Today's Communication/Plan
-
cont abx PICC placement as per ID
Pending MRI
Assessment / Plan
Assessment / Plan
Physical Exam
General: No pallor, cyanosis, or jaundice.
HEENT: Throat clear. PERRLA Normocephalic atraumatic
NECK: Supple. No JVD Carotid Bruits
RESPIRATORY: Lungs clear to auscultation. No crackles wheezes stridor
CVS: S1, S2 normal. RRR.� No murmur, rub or gallop.
ABDOMEN: Soft, non-tender. No distension. BS+/normal.
EXTREMITIES: No peripheral cyanosis or edema. Left elbow dressing in place clean dry intact
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 Last injection 2 months ago. Reports
elbow oozing white purulent fluid for a few weeks. Referred to ED by PCP after office visit. ED XR concerning for possible osteomyelitis Soft tissue infection, possible septic arthritis/bursitis though less likely given overall clinical picture.�
VSS afebrile.� Non-toxic appearing.� Elbow pain mild.� Denies fever chills nausea vomiting diarrhea constipation.� Labs unremarkable.�
Left Elbow Wound
Possible Osteomyelitis
-X-ray suggestive osteomyelitis
-Orthopedics eval appreciated surgery and wound closure will likely need to wait until drainage subsides as continued drainage will not allow for wound healing
-Wound Cx appreciated Klebsiella and Eikenella
-ID eval appreciated empiric Vanc zosyn converted to Ceftriaxone, PICC ordered, follow up with plastic surgery Dr Bucio recommended
-Left Upper Ext MRI pending
Diabetes Mellitus, Type II
-HgbA1c 7.9
-Continue Lantus 35U HS, Low dose sliding scale
-Monitor sugars and continue coverage insulin
Chronic Heart Failure with Recovered EF
-Continue Toprol XL
BPH
-Continue Flomax
DVT proph: Lovenox
I spent a total of 50 minutes with the patient or on the floor. More than 50% of this time involved counseling and coordination of care.
Anticipated Discharge: 24 - 48 hours
Subjective/Interval History
-
Date of Service: September 10, 2023
no acute distress. Understandably frustrated with delay awaiting Left elbow MRI since admission. Otherwise denies new acute issues
Objective Data
-
Labs:
Laboratory Results
09/10/23
06:42
WBC Pending
Hgb Pending
Hct Pending
Plt Count Pending
Sodium Pending
Potassium Pending
Chloride Pending
Carbon Dioxide Pending
BUN Pending
Creatinine Pending
Glucose Pending
Calcium Pending
Total Bilirubin Pending
AST Pending
ALT Pending
Alkaline Phosphatase Pending
Vital Signs:
Vital Signs
Temp Pulse Resp BP Pulse Ox
98.0 F 74 16 128/81 96
09/09/23 22:50 09/09/23 22:50 09/09/23 22:50 09/09/23 22:50 09/09/23 22:50
I&O
09/08/23 09/09/23 09/10/23
06:59 06:59 06:59
Intake Total 1260 / 1260
Balance 1260 / 1260
[2023-09-10 07:35] VITALS: BP 117/71
[2023-09-10 07:47] LABS: Hematocrit 38.2 % (39.0-52.0); Hemoglobin 13.1 g/dL (13.0-18.0); Mean Corp Hgb Conc. 34.3 g/dL (33.0-37.0); Mean Corpuscular Hgb 31.7 pg (27.0-31.0); Mean Corpuscular Volume 92.5 fL (80.0-94.0); Mean Platelet Volume 10.7 fL (7.4-10.4); Platelet Count 201 10^3/uL (130-400); Red Blood Cell Count 4.13 10^6/uL (4.70-6.10); Red Cell Dist. Width 12.3 % (11.5-14.5); White Blood Cell Count 4.5 10^3/uL (4.8-10.8)
[2023-09-10 08:04] LABS: Glucose - Point of Care 160 mg/dl (70-99)
--- NOTE | 2023-09-10 08:04 | PHA.VAN.FU ---
Vancomycin Assessment / Plan
- Assessment
Renal Function: Stable
WBC's are: WNL
In the past 24 hrs, patient has been: Afebrile
Concomitant Antimicrobials: ZOSYN
- Dosing Plan
Continue: 1000MG Q12H
- Monitoring Plan
Peak Level: 09/09 2029
Trough Level: 09/10 529
- Follow Up
Pharmacy will continue to follow.
Vancomycin Follow UP
- -
Patient Age: 68
Patient Sex: Male
Vancomycin Day #: 3
Indication: Skin And Soft Tissue
Requesting Provider: Renae London
Pertinent Antimicrobial Allergies:
no pertinent antimicrobial allergies
Height / Weight:
Height 5 ft 7 in
Actual Weight 87.146 kg
- Vital Signs / Lab Results
Temp Pulse Resp BP Pulse Ox
98.0 F 74 16 128/81 96
09/09/23 22:50 09/09/23 22:50 09/09/23 22:50 09/09/23 22:50 09/09/23 22:50
Lab Results - Hematology
09/08/23 09/09/23
14:10 07:03
WBC 7.5 5.0
Lab Results - Chemistry
09/08/23 09/09/23
14:10 07:03
BUN 20 15
Creatinine 0.8 0.8
Estimated Creat Clear 94 93
Microbiology Results
09/08/23 14:10 Wound Culture - Preliminary
Elbow - Left Gram negative bacilli
Gram Stain - Preliminary
[2023-09-10 08:38] LABS: ALT (SGPT) 18 U/L (0-50); AST (SGOT) 23 U/L (17-59); Albumin 3.6 g/dl (3.5-5.0); Alkaline Phosphatase 79 U/L (38-126); Blood Urea Nitrogen 15 mg/dl (9-20); Calcium 8.8 mg/dl (8.4-10.2); Carbon Dioxide 24 mmol/L (22-30); Chloride 103 mmol/L (98-107); Estimated Creatinine Clearance 82 ml/min; Glucose 162 mg/dl (70-99); Phosphorus 4.4 mg/dl (2.5-4.5); Potassium 4.2 mmol/L (3.5-5.1); Sodium 134 mmol/L (135-145); Total Bilirubin 0.6 mg/dl (0.2-1.3); Total Protein 6.5 g/dl (6.3-8.2); eGFR > 60.00
--- NOTE | 2023-09-10 08:45 | W.PN.UPDATE ---
Update Note
Progress Note Update
Patient stable. Awaiting MRI. On IV antibiotics. Patient frustrated asking when he will be getting out of here. 'I've been under a doctor's care for a long time for this.' AVSS. Left upper extremity with purulent drainage. No significant
change. ROM of elbow without tenderness. Xrays very concerning for osteomyelitis about the majority of the olecranon. Healing his wound a big concern with his IDDM history and multiple cortisone injections over the years to the area. Explained
to the patient that surgery and wound closure will likely need to wait until drainage subsides as continued drainage will not allow for wound healing. Will review MRI findings and make recommendations.
[2023-09-10] MEDS: NOVOLOG FLEXPEN-LOW RESISTANCE 1 UNITS SC (10:32)
[2023-09-10 11:34] LABS: Glucose - Point of Care 138 mg/dl (70-99)
[2023-09-10] MEDS: NOVOLOG FLEXPEN-LOW RESISTANCE SC (11:45)
[2023-09-10 15:08] VITALS: BP 119/74
[2023-09-10 15:20] VITALS: BMI 30.1
--- NOTE | 2023-09-10 16:12 | W.PN.ID1 ---
Date of Service
Date of Service: September 10, 2023
Today's Communication
- start ceftriaxone stop vanc/zosyn
- appreciate orthopedics input - agree that wound healing may be challenging; discussed follow up with plastic surgery Dr Bucio
Assessment / Plan
Suspected Bursitis
Probable osteomyelitis
Dm2 uncontrolled
Reported history of necrobiosis of the elbow
- wound cx: k pneumoniae and eikenella
- mrsa screen negative
- blood cultures x2
- outpatient recommend tight glucose control
- MRI pending
- start ceftriaxone stop vanc/zosyn
- appreciate orthopedics input - agree that wound healing may be challenging; discussed follow up with plastic surgery Dr Bucio
Chief Complaint
-: Other (probable osteomyelitis of the L elbow)
Subjective / Review of Systems
afebrile
bp stable
without leukocytosis, cr stable, blood cultures no growth to date
wound cx: k pneumoniae and eikenella
Vital Signs / Physical Exam
Vital Signs
Vital Signs
Temp Pulse Resp BP Pulse Ox
97.9 F 75 16 117/71 96
09/10/23 07:35 09/10/23 07:35 09/10/23 07:35 09/10/23 07:35 09/10/23 15:20
Physical Exam
Constitutional: No Acute Distress
Cardiovascular: Regular Rate and S1/S2; Negative Murmur or Rub
Pulmonary: Clear and Symmetric; Negative Wheezes or Rales
Gastrointestinal: Soft, Non Tender, Non Distended and Normal Bowel Sounds
Extremities: Other (dressing clean, dry, intact)
Skin: Warm and Dry; Negative Rash or Jaundice
Objective Data
Lab Data
Lab Results
09/10/23 06:42
09/10/23 06:42
ESR 54 mm/hour (0-20) H 09/08/23 14:10
Estimated Creat Clear 82 ml/min 09/10/23 06:42
Total Bilirubin 0.6 mg/dl (0.2-1.3) 09/10/23 06:42
AST 23 U/L (17-59) 09/10/23 06:42
ALT 18 U/L (0-50) 09/10/23 06:42
Alkaline Phosphatase 79 U/L (38-126) 09/10/23 06:42
C-Reactive Protein 23.90 mg/L (0.0-10.00) H 09/08/23 14:10
Most recent labs reviewed.
Micro Results:
09/09/23 14:28 Blood Culture - Preliminary
Blood/Venous No Growth in 24 hours- Final report to follow
09/08/23 14:10 Wound Culture - Preliminary
Elbow - Left Klebsiella pneumoniae
Eikenella corrodens
Gram Stain - Preliminary
09/09/23 13:40 Blood Culture - Preliminary
Blood/Venous No Growth in 24 hours- Final report to follow
09/08/23 18:04 MRSA Screen - Final
Nose No Methicillin Resistant Staphylococcus aureus isolated.
Care Review
Plan reviewed with: Physician (Dr Swenson - plastics)
[2023-09-10 16:44] LABS: Glucose - Point of Care 205 mg/dl (70-99)
[2023-09-10] MEDS: LOVENOX 40 MG SC (17:11)
[2023-09-10] MEDS: ROCEPHIN 2000 MG IV (17:11)
[2023-09-10] MEDS: STERILE WATER FOR INJECTION 20 ML IV (17:11)
[2023-09-10] MEDS: NOVOLOG FLEXPEN-LOW RESISTANCE 2 UNITS SC (17:12)
[2023-09-10 21:50] LABS: Glucose - Point of Care 181 mg/dl (70-99)
[2023-09-10] MEDS: FLOMAX 0.400000000000000022 MG PO (22:11)
[2023-09-10] MEDS: LANTUS 0.349999999999999978 UNITS SC (22:11)
[2023-09-10] MEDS: TOPROL XL 25 MG PO (22:11)
[2023-09-11 06:08] VITALS: BMI 29.8
[2023-09-11 07:30] VITALS: BP 113/73
[2023-09-11 07:49] LABS: Glucose - Point of Care 110 mg/dl (70-99)
--- NOTE | 2023-09-11 08:16 | W.PN.UPDATE ---
Update Note
Progress Note Update
Mr. oTrrez is sitting comfortably in bed this morning. He reports overall the pain in his elbow is improving. He has no questions or concerns at this time.
Directed exam of the left elbow reveals erythema over the olecranon. Two small wounds over the olecranon. No purulence or drainage able to be expressed, but there is purulent drainage on his dressings. ROM without pain. Neurovascularly intact
distally.
Culture from 09/07 reveals Klebsiella and Eikenella. Blood culures negative.
--We are awaiting MRI of the left upper extremity for further treatment recommendations.
--Continue daily dressing changes.
--Continue antibiotics per ID. Currently ceftriaxone.
--Continue current pain management regimen.
--Orthopedics will continue to follow along.
[2023-09-11] MEDS: NOVOLOG FLEXPEN-LOW RESISTANCE SC ×3 (08:29→17:37)
[2023-09-11 09:28] LABS: Hemoglobin 14.4 g/dL (13.0-18.0); Mean Corp Hgb Conc. 34.3 g/dL (33.0-37.0); Mean Corpuscular Hgb 32.3 pg (27.0-31.0); Mean Corpuscular Volume 94.2 fL (80.0-94.0); Mean Platelet Volume 10.5 fL (7.4-10.4); Platelet Count 198 10^3/uL (130-400); Red Blood Cell Count 4.46 10^6/uL (4.70-6.10); Red Cell Dist. Width 12.5 % (11.5-14.5); White Blood Cell Count 6.4 10^3/uL (4.8-10.8)
[2023-09-11 10:00] LABS: Blood Urea Nitrogen 19 mg/dl (9-20); Calcium 9.7 mg/dl (8.4-10.2); Carbon Dioxide 28 mmol/L (22-30); Chloride 102 mmol/L (98-107); Estimated Creatinine Clearance 105 ml/min; Glucose 122 mg/dl (70-99); Magnesium 2.3 mg/dl (1.6-2.3); Potassium 4.6 mmol/L (3.5-5.1); Sodium 138 mmol/L (135-145); eGFR > 60.00
--- NOTE | 2023-09-11 12:26 | W.PN.HOSP.TC ---
Today's Communication/Plan
-
Monitor vital signs
see plan
PICC line today
Continue antibiotics per infectious disease
Pending MRI
Assessment / Plan
Assessment / Plan
Physical Exam
General: No pallor, cyanosis, or jaundice.
HEENT: Throat clear. PERRLA Normocephalic atraumatic
NECK: Supple. No JVD Carotid Bruits
RESPIRATORY: Lungs clear to auscultation. No crackles wheezes stridor
CVS: S1, S2 normal. RRR.� No murmur, rub or gallop.
ABDOMEN: Soft, non-tender. No distension. BS+/normal.
EXTREMITIES: No peripheral cyanosis or edema. Left elbow dressing in place clean dry intact
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 Last injection 2 months ago. Reports
elbow oozing white purulent fluid for a few weeks. Referred to ED by PCP after office visit. ED XR concerning for possible osteomyelitis Soft tissue infection, possible septic arthritis/bursitis though less likely given overall clinical picture.�
VSS afebrile.� Non-toxic appearing.� Elbow pain mild.� Denies fever chills nausea vomiting diarrhea constipation.� Labs unremarkable.�
Left Elbow Wound
Possible Osteomyelitis
-X-ray suggestive osteomyelitis
-Orthopedics eval appreciated surgery and wound closure will likely need to wait until drainage subsides as continued drainage will not allow for wound healing
-Wound Cx appreciated Klebsiella and Eikenella
-ID eval appreciated empiric Vanc zosyn converted to Ceftriaxone, PICC ordered, follow up with plastic surgery Dr Bucio recommended
-Left Upper Ext MRI pending
Patient is upset that MRI pending for few days now; I told him that MRI will determine length of his treatment.
Diabetes Mellitus, Type II
-HgbA1c 7.9
-Continue Lantus 35U HS, Low dose sliding scale
-Monitor sugars and continue coverage insulin
Chronic Heart Failure with Recovered EF
-Continue Toprol XL
BPH
-Continue Flomax
DVT proph: Lovenox
Anticipated Discharge: 24 - 48 hours
Subjective/Interval History
-
Date of Service: September 11, 2023
denies nausea
Objective Data
-
Labs:
Laboratory Results
09/11/23
09:15
WBC 6.4
Hgb 14.4
Hct 42.0
Plt Count 198
Sodium 138
Potassium 4.6
Chloride 102
Carbon Dioxide 28
BUN 19
Creatinine 0.7
Glucose 122 H
Calcium 9.7
Vital Signs:
Vital Signs
Temp Pulse Resp BP Pulse Ox
98.5 F 69 18 113/73 95
09/11/23 07:30 09/11/23 07:30 09/11/23 07:30 09/11/23 07:30 09/11/23 07:30
I&O
09/10/23 09/11/23 09/12/23
06:59 06:59 06:59
Intake Total 1260 / 1260 480 / 480
Balance 1260 / 1260 480 / 480
--- NOTE | 2023-09-11 13:16 | PHA.VAN.IN ---
Assessment
- Assessment
Renal Function: Appears similar to baseline
Concomitant Antimicrobials: ceftriaxone
AUC Dosing Plan
- Dosing Variables
Dosing Weight (kg): 86
Dosing CrCl (ml/min): 105
Vd coefficient (L/kg): 0.7
- Empiric Dosing
Maintenance Regimen: Vanc 1250mg Q12H - first dose now then 09/11 1799
Estimated AUC (mcg*h/mL): 485
Estimated Peak (mcg*h/mL): 31.1
Estimated Trough (mcg/ml): 11.9
Estimated Half Life (H): 7.6
Vanc discontinued after 09/09 AM dose of 1000mg - since recently on, will resume with maintenance dosing rather than administering any loading doses
- Monitoring
No levels ordered at this time: consider levels in next few days
Pharmacokinetics Vancomycin I
- -
Patient Age: 68
Patient Sex: Male
Vancomycin Day #: 1 (previously on 09/07 - 09/09 AM)
Indication: Bone And Joint
Requesting Provider: Dr. Sutton
Pertinent Antimicrobial Allergies:
no pertinent antimicrobial allergies
Height / Weight:
Height 5 ft 7 in
Actual Weight 86.353 kg
Pertinent Past Medical History: BMI ~30, DM2
- Vital Signs / Lab Results
Temp Pulse Resp BP Pulse Ox
98.5 F 69 18 113/73 95
09/11/23 07:30 09/11/23 07:30 09/11/23 07:30 09/11/23 07:30 09/11/23 07:30
Lab Results - Hematology
09/08/23 09/09/23 09/10/23
14:10 07:03 06:42
WBC 7.5 5.0 4.5 L
09/11/23
09:15
WBC 6.4
Lab Results - Chemistry
09/08/23 09/09/2324
14:10 07:03 06:42
BUN 20 15 15
Creatinine 0.8 0.8 0.9
Estimated Creat Clear 94 93 82
Albumin 3.6
09/11/23
09:15
BUN 19
Creatinine 0.7
Estimated Creat Clear 105
Albumin
Microbiology Results
09/08/23 14:10 Wound Culture - Final
Elbow - Left Klebsiella pneumoniae
Eikenella corrodens
Diptheroids
Gram Stain - Final
09/09/23 14:28 Blood Culture - Preliminary
Blood/Venous No Growth in 24 hours- Final report to follow
09/09/23 13:40 Blood Culture - Preliminary
Blood/Venous No Growth in 24 hours- Final report to follow
09/08/23 18:04 MRSA Screen - Final
Nose No Methicillin Resistant Staphylococcus aureus isolated.
--- NOTE | 2023-09-11 14:22 | CM ---
manager special events reviewed patient's chart and met with patient today along with ID physician and plan is for patient to return to home on IV ABX, infusion options reviewed and patient has selected [facility], prescription for IV ABX was provided by ID
physician and PICC line inserted today, H&P, consultations and progress notes faxed along with xray and insurance information.
Plan; To await information on patient's benefit for home infusion.
[2023-09-11 14:30] VITALS: BP 146/79
--- NOTE | 2023-09-11 15:23 | W.PN.ID1 ---
Date of Service
Date of Service: September 11, 2023
Today's Communication
follow up MRI
Assessment / Plan
Suspected Bursitis
Probable osteomyelitis
Dm2 uncontrolled
Reported history of necrobiosis of the elbow
- wound cx: k pneumoniae, eikenella, diphteroid
- mrsa screen negative
- blood cultures x2
- outpatient recommend tight glucose control
- PICC in place
- MRI pending
- continue ceftriaxone add vancomycin
- appreciate orthopedics input - agree that wound healing may be challenging; discussed follow up with plastic surgery Dr Bucio
Chief Complaint
-: Other (probable osteomyelitis of the L elbow)
Subjective / Review of Systems
afebrile
bp stable
without leukocytosis
cr stable
wound cx also with diptheroid
picc
Vital Signs / Physical Exam
Vital Signs
Vital Signs
Temp Pulse Resp BP Pulse Ox
97.6 F 78 18 146/79 98
09/11/23 14:30 09/11/23 14:30 09/11/23 14:30 09/11/23 14:30 09/11/23 14:30
Physical Exam
Constitutional: No Acute Distress
Cardiovascular: Regular Rate and S1/S2; Negative Murmur or Rub
Pulmonary: Clear and Symmetric; Negative Wheezes or Rales
Gastrointestinal: Soft, Non Tender, Non Distended and Normal Bowel Sounds
Skin: Warm and Dry; Negative Rash or Jaundice
Lines: PICC (no erythema, warmth, tenderness or drainage)
Objective Data
Lab Data
Lab Results
09/11/23 09:15
09/11/23 09:15
ESR 54 mm/hour (0-20) H 09/08/23 14:10
Estimated Creat Clear 105 ml/min 09/11/23 09:15
Total Bilirubin 0.6 mg/dl (0.2-1.3) 09/10/23 06:42
AST 23 U/L (17-59) 09/10/23 06:42
ALT 18 U/L (0-50) 09/10/23 06:42
Alkaline Phosphatase 79 U/L (38-126) 09/10/23 06:42
C-Reactive Protein 23.90 mg/L (0.0-10.00) H 09/08/23 14:10
Most recent labs reviewed.
Micro Results:
09/09/23 14:28 Blood Culture - Preliminary
Blood/Venous No Growth in 48 hours- Final report to follow
09/09/23 13:40 Blood Culture - Preliminary
Blood/Venous No Growth in 48 hours- Final report to follow
09/08/23 14:10 Wound Culture - Final
Elbow - Left Klebsiella pneumoniae
Eikenella corrodens
Diptheroids
Gram Stain - Final
09/08/23 18:04 MRSA Screen - Final
Nose No Methicillin Resistant Staphylococcus aureus isolated.
--- NOTE | 2023-09-11 16:47 | W.PN.UPDATE ---
Update Note
Progress Note Update
Patient seen and examined. Patient's daughter present. AVSS. PICC line placed today. MRI reviewed. Discussed MRI findings which were as anticipated. MRI compatible with chronic osteomyelitis of the entire olecranon. No significant soft tissue
abscess. No significant intra-articular effusion. Have discussed previously with ID. Surgical debridement not an option. Recommend antibiotics. May require chronic suppressive therapy at some point in time. When drainage stops, I have
recommended an evaluation with plastic surgery for wound closure and possible coverage options. We will currently sign off. Please call if any further assistance from ortho needed.
[2023-09-11] MEDS: VANCOCIN 275 MG IV (17:10)
[2023-09-11] MEDS: ROCEPHIN 2000 MG IV (17:11)
[2023-09-11] MEDS: STERILE WATER FOR INJECTION 20 ML IV (17:11)
[2023-09-11 17:27] LABS: Glucose - Point of Care 89 mg/dl (70-99)
[2023-09-11] MEDS: LOVENOX 40 MG SC (21:00)
[2023-09-11] MEDS: FLOMAX 0.400000000000000022 MG PO (21:01)
[2023-09-11] MEDS: TOPROL XL 25 MG PO (21:04)
[2023-09-11 22:25] LABS: Glucose - Point of Care 155 mg/dl (70-99)
[2023-09-11] MEDS: LANTUS 0.349999999999999978 UNITS SC (22:55)
[2023-09-11 23:58] VITALS: BP 109/64
[2023-09-12] MEDS: VANCOCIN 275 MG IV ×2 (05:54→18:18)
[2023-09-12 06:00] VITALS: BMI 29.7
[2023-09-12 06:48] LABS: Hematocrit 39.3 % (39.0-52.0); Hemoglobin 13.3 g/dL (13.0-18.0); Mean Corp Hgb Conc. 33.8 g/dL (33.0-37.0); Mean Corpuscular Volume 94.7 fL (80.0-94.0); Mean Platelet Volume 10.4 fL (7.4-10.4); Platelet Count 193 10^3/uL (130-400); Red Blood Cell Count 4.15 10^6/uL (4.70-6.10); Red Cell Dist. Width 12.4 % (11.5-14.5); White Blood Cell Count 5.8 10^3/uL (4.8-10.8)
[2023-09-12 07:02] LABS: Blood Urea Nitrogen 18 mg/dl (9-20); Carbon Dioxide 28 mmol/L (22-30); Chloride 105 mmol/L (98-107); Estimated Creatinine Clearance 93 ml/min; Glucose 91 mg/dl (70-99); Magnesium 2.1 mg/dl (1.6-2.3); Phosphorus 3.6 mg/dl (2.5-4.5); Sodium 136 mmol/L (135-145); eGFR > 60.00
[2023-09-12 07:31] VITALS: BP 107/65
[2023-09-12 07:48] LABS: Glucose - Point of Care 104 mg/dl (70-99)
[2023-09-12 08:30] VITALS: BMI 29.7
[2023-09-12] MEDS: NOVOLOG FLEXPEN-LOW RESISTANCE SC ×3 (08:30→18:18)
[2023-09-12] MEDS: LOVENOX SC (08:32)
--- NOTE | 2023-09-12 09:34 | PHA.VAN.FU ---
Vancomycin Assessment / Plan
- Assessment
Renal Function: Stable
WBC's are: WNL
In the past 24 hrs, patient has been: Afebrile
Concomitant Antimicrobials: ceftriaxone
- Dosing Plan
Continue: Vanc 1250mg Q12H
- Monitoring Plan
Peak Level: 09/11 21:00
Trough Level: 09/12 05:30
Monitoring Comments: levels to be drawn after 3rd maintenance dose
Possible discharge for today noted - levels ordered in event not discharged but may obtain trough as an outpatient
- Follow Up
Pharmacy will continue to follow.
Vancomycin Follow UP
- -
Patient Age: 68
Patient Sex: Male
Vancomycin Day #: 2 (previously on 09/07 - 09/09 AM)
Indication: Bone And Joint
Requesting Provider: Dr. Sutton
Pertinent Antimicrobial Allergies:
no pertinent antimicrobial allergies
Height / Weight:
Height 5 ft 7 in
Actual Weight 85.927 kg
Pertinent Past Medical History: BMI ~30, DM2
- Vital Signs / Lab Results
Temp Pulse Resp BP Pulse Ox
98.2 F 70 18 107/65 96
09/12/23 07:31 09/12/23 07:31 09/12/23 07:31 09/12/23 07:31 09/12/23 07:31
Lab Results - Hematology
09/10/23 09/11/23 09/12/23
06:42 09:15 06:25
WBC 4.5 L 6.4 5.8
Lab Results - Chemistry
09/10/23 09/11/23 09/12/23
06:42 09:15 06:25
BUN 15 19 18
Creatinine 0.9 0.7 0.7
Estimated Creat Clear 82 105 93
Albumin 3.6
Microbiology Results
09/09/23 14:28 Blood Culture - Preliminary
Blood/Venous No Growth in 48 hours- Final report to follow
09/09/23 13:40 Blood Culture - Preliminary
Blood/Venous No Growth in 48 hours- Final report to follow
09/08/23 14:10 Wound Culture - Final
Elbow - Left Klebsiella pneumoniae
Eikenella corrodens
Diptheroids
Gram Stain - Final
09/08/23 18:04 MRSA Screen - Final
Nose No Methicillin Resistant Staphylococcus aureus isolated.
Therapeutic Drug Monitoring
Vancomycin Peak Cancelled 09/10/23 20:30
--- NOTE | 2023-09-12 10:56 | W.PN.HOSP.TC ---
Addendum entered and electronically signed by Jame Stout MD 09/12/23 14:10:
Confirmed with director case management,nursing and ID. After today's antibiotics home infusion can see patient tomorrow and do teaching. ok to dc home today after abx
time of discharge 38 minutes
Original Note:
Today's Communication/Plan
-
Monitor vital signs see plan
Continue with vancomycin and ceftriaxone per infectious disease recommendation, likely will need at least 6 weeks of antibiotics
Patient to follow-up with plastic surgery outpatient
manager call center aware to set up dc antibiotic
possible dc if abx set up
Assessment / Plan
Assessment / Plan
Physical Exam
General: No pallor, cyanosis, or jaundice.
HEENT: Throat clear. PERRLA Normocephalic atraumatic
NECK: Supple. No JVD Carotid Bruits
RESPIRATORY: Lungs clear to auscultation. No crackles wheezes stridor
CVS: S1, S2 normal. RRR.� No murmur, rub or gallop.
ABDOMEN: Soft, non-tender. No distension. BS+/normal.
EXTREMITIES: No peripheral cyanosis or edema. Left elbow dressing in place clean dry intact
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 Last injection 2 months ago. Reports
elbow oozing white purulent fluid for a few weeks. Referred to ED by PCP after office visit. ED XR concerning for possible osteomyelitis Soft tissue infection, possible septic arthritis/bursitis though less likely given overall clinical picture.�
VSS afebrile.� Non-toxic appearing.� Elbow pain mild.� Denies fever chills nausea vomiting diarrhea constipation.� Labs unremarkable.�
Left Elbow Wound
Possible Osteomyelitis
-X-ray suggestive osteomyelitis
-Orthopedics eval appreciated surgery and wound closure will likely need to wait until drainage subsides as continued drainage will not allow for wound healing
-Wound Cx appreciated Klebsiella and Eikenella
-ID following, now on Vanco and ceftriaxone, s/p PICC ordered, follow up with plastic surgery Dr Bucio recommended. per ID atleast 6 weeks of abx
-Left Upper Ext MRI compatible with chronic osteomyelitis of the entire olecranon.� No significant soft tissue abscess.� No significant intra-articular effusion.�
No surgical option recommended by orthopedics. Patient is instructed to follow-up with plastic surgery for wound closure outpatient.
Diabetes Mellitus, Type II
-HgbA1c 7.9
-Continue Lantus 35U HS, Low dose sliding scale
-Monitor sugars and continue coverage insulin
Chronic Heart Failure with Recovered EF
-Continue Toprol XL
BPH
-Continue Flomax
DVT proph: Lovenox
Anticipated Discharge: Today
Subjective/Interval History
-
Date of Service: September 12, 2023
denies pain
Objective Data
-
Labs:
Laboratory Results
09/12/23
06:25
WBC 5.8
Hgb 13.3
Hct 39.3
Plt Count 193
Sodium 136
Potassium 4.0
Chloride 105
Carbon Dioxide 28
BUN 18
Creatinine 0.7
Glucose 91
Calcium 9.0
Vital Signs:
Vital Signs
Temp Pulse Resp BP Pulse Ox
98.2 F 70 18 107/65 99
09/12/23 07:31 09/12/23 07:31 09/12/23 07:31 09/12/23 07:31 09/12/23 08:30
I&O
09/11/23 09/12/23 09/13/23
06:59 06:59 06:59
Intake Total 480 / 480 730 / 730
Balance 480 / 480 730 / 730
[2023-09-12 11:54] LABS: Glucose - Point of Care 199 mg/dl (70-99)
--- NOTE | 2023-09-12 11:55 | CM ---
Addendum entered by Shelly Vivas 09/12/23 15:17:
Per Carmen at [facility], spoke with patients , has appointment tomorrow morning and will not be home until 1:00 p.m. and needs to be present for teaching. CM updated patient, Nurse, Hospitalist, and ID Doctor. IMM reviewed with patient,
signed, placed in patients chart. CM will continue to follow for discharge planning needs.
Plan; discharge tomorrow after AM dose of antibiotics, [facility] to deliver supples/do teaching tomorrow afternoon.
Original Note:
Patient seen bedside, given pricing information from Carmen at [facility] for home iv antibiotic set up. Patient agreeable, requesting Carmen call patients , Yary [phone] between 12- to discuss teaching, payment, delivery. Per Carmen, would
need to look at a discharge of tomorrow due to nursing and teaching availability. TT sent to Hospitalist with update, awaiting to hear what time teaching can be done tomorrow. CM will continue to follow for discharge planning needs.
Plan; home with [facility] for IV antibiotics.
--- NOTE | 2023-09-12 14:08 | W.DCSUMMARY ---
Discharge Summary
Discharge Data
Date of Admission: 09/08/23
Date of Discharge: 09/13/23
-
Pending Results: No
Hospital Course
68-year-old male with past medical history of insulin-dependent diabetes mellitus, CHF, BPH, left elbow necrobiosis came to the hospital with left elbow wound with oozing. Patient was seen by infectious disease throughout hospitalization. Wound
culture was consistent with Klebsiella and Eikenella. Patient was started initially on empiric antibiotic which was finalized to vancomycin and ceftriaxone. Patient was also seen by orthopedics and had a left upper extremity MRI which was
consistent with chronic osteomyelitis of entire olecranon. There was no significant soft tissue abscess or intra-articular effusion noted. Orthopedics instructed patient that there are no surgical options from their standpoint. Patient instructed
to follow-up with plastic surgery Dr. Ricardo outpatient. Once patient antibiotics were set up, he was then discharged home on IV antibiotics and instructions to follow-up with all his physicians outpatient.
Discharge Plan
-
Patient Disposition: Home with Home Care
Discharge Diagnosis/Procedures: Left olecranon osteomyelitis
Suspected bursitis
Condition: Good
Diet: As tolerated and Diabetic, Carb Controlled
Activity: As tolerated
Driving Restrictions: As prior to admission
Bathing Restrictions: None
Referrals:
Aydin Allen MD [Family Provider] - in less than 1 week
Aydin Bucio MD [Active] -
Miriam Sutton MD [Active] -
Prescriptions:
New
ceftriaxone 2 gram Recon Soln
2,000 mg IV Q24H Qty: 0 0RF
acetaminophen 325 mg Tablet
650 mg PO Q4HPRN PRN (Reason: mild pain/ fever>100.5F) Qty: 0 0RF
Vancomycin [Vancocin] 1250 MG
0.9% Sodium Chloride 250 ml [Nss] 250 ML
183.33 mls/hr IV Q12@0600,1800
Ordered By: Jame Stout MD
Last Taken: 09/13/23 06:05 275 mls
Protocol: None
Protocol Text:
DOSING PER PHARMACY
Please contact pharmacy with any questions.
Continued
aspirin 81 mg Tablet,Delayed Release (Dr/Ec)
162 mg PO DAILY
prednisolone acetate 1 % drops,suspension
1 drp LEFT EYE DAILY
tamsulosin [Flomax] 0.4 mg Capsule
0.4 mg PO HS
brimonidine 0.2 % Drops
1 drp LEFT EYE BID
metoprolol succinate [Toprol XL] 25 mg Tablet Extended Release 24 Hr
25 mg PO HS
insulin glargine [Basaglar KwikPen U-100 Insulin] 100 unit/mL (3 mL) Insulin Pen
35 unit SC HS
Discontinued
sulfamethoxazole-trimethoprim [Bactrim DS] 800-160 mg Tablet
1 tab PO BID
Patient Comments:
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
Discharge Orders:
Discharge Patient (As Directed); Ordered 09/13/23
Ordered By: Jame Stout
Discharge Date and Time
Discharge Date/Time: 09/13/23 10:36
Print Language: YI
[2023-09-12] MEDS: ROCEPHIN 2000 MG IV (15:22)
[2023-09-12] MEDS: STERILE WATER FOR INJECTION 20 ML IV (15:23)
[2023-09-12 15:35] VITALS: BP 113/90
--- NOTE | 2023-09-12 16:25 | W.PN.ID1 ---
Date of Service
Date of Service: September 12, 2023
Today's Communication
- continue ceftriaxone, vancomycin
- follow up with plastic surgery Dr Bucio
- follow up with me in several weeks
Assessment / Plan
Suspected Bursitis
Probable osteomyelitis
Dm2 uncontrolled
Reported history of necrobiosis of the elbow
- wound cx: k pneumoniae, eikenella, diphteroid
- blood cultures x2 no growth to date
- outpatient recommend tight glucose control
- PICC in place
- MRI - phlegmon but no ethel abscess; probable osteomyelitis
- continue ceftriaxone, vancomycin
- follow up with plastic surgery Dr Bucio
- follow up with me in several weeks
Chief Complaint
-: Other (probable osteomyelitis of the L elbow)
Subjective / Review of Systems
afebrile
bp stable
without leukocytosis, cr stable
blood cultures no growth to date
tolerating current antibiotics
Vital Signs / Physical Exam
Vital Signs
Vital Signs
Temp Pulse Resp BP Pulse Ox
99.1 F 87 16 113/90 96
09/12/23 15:35 09/12/23 15:35 09/12/23 15:35 09/12/23 15:35 09/12/23 15:35
Physical Exam
Constitutional: No Acute Distress
Cardiovascular: Regular Rate and S1/S2; Negative Murmur or Rub
Pulmonary: Clear and Symmetric; Negative Wheezes or Rales
Gastrointestinal: Soft, Non Tender, Non Distended and Normal Bowel Sounds
Skin: Warm and Dry; Negative Rash or Jaundice
Wound: Other (dressing with fair amount of serous drainage)
Lines: PICC
Objective Data
Lab Data
Lab Results
09/12/23 06:25
09/12/23 06:25
ESR 54 mm/hour (0-20) H 09/08/23 14:10
Estimated Creat Clear 93 ml/min 09/12/23 06:25
Total Bilirubin 0.6 mg/dl (0.2-1.3) 09/10/23 06:42
AST 23 U/L (17-59) 09/10/23 06:42
ALT 18 U/L (0-50) 09/10/23 06:42
Alkaline Phosphatase 79 U/L (38-126) 09/10/23 06:42
C-Reactive Protein 23.90 mg/L (0.0-10.00) H 09/08/23 14:10
Most recent labs reviewed.
Micro Results:
09/09/23 14:28 Blood Culture - Preliminary
Blood/Venous No Growth in 72 hours- Final report to follow
09/09/23 13:40 Blood Culture - Preliminary
Blood/Venous No Growth in 72 hours- Final report to follow
09/08/23 14:10 Wound Culture - Final
Elbow - Left Klebsiella pneumoniae
Eikenella corrodens
Diptheroids
Gram Stain - Final
09/08/23 18:04 MRSA Screen - Final
Nose No Methicillin Resistant Staphylococcus aureus isolated.
[2023-09-12 18:17] LABS: Glucose - Point of Care 155 mg/dl (70-99)
[2023-09-12 21:54] LABS: Vancomycin Peak 31.9 ug/ml (18-26)
[2023-09-12] MEDS: FLOMAX 0.400000000000000022 MG PO (22:09)
[2023-09-12] MEDS: TOPROL XL 25 MG PO (22:11)
[2023-09-12] MEDS: LANTUS 0.349999999999999978 UNITS SC (22:12)
[2023-09-12 22:13] LABS: Glucose - Point of Care 151 mg/dl (70-99)
[2023-09-12 23:48] VITALS: BP 143/86
--- NOTE | 2023-09-13 03:28 | DOWNTIME ---
There was a [employer] Manager Downtime on 09/13/2023 from 0100 to 09/13/2023 at 0322. Downtime documentation of patient's care, including medication administrations, has been reconciled in the electronic record per guidelines. Refer to the
patient's paper chart under the miscellaneous tab to see printed paper medication records and downtime forms.
[2023-09-13 05:40] VITALS: BMI 29.9
[2023-09-13 05:45] LABS: Hemoglobin 12.8 g/dL (13.0-18.0); Mean Corp Hgb Conc. 34.6 g/dL (33.0-37.0); Mean Corpuscular Hgb 31.9 pg (27.0-31.0); Mean Corpuscular Volume 92.3 fL (80.0-94.0); Mean Platelet Volume 10.3 fL (7.4-10.4); Platelet Count 182 10^3/uL (130-400); Red Blood Cell Count 4.01 10^6/uL (4.70-6.10); Red Cell Dist. Width 12.4 % (11.5-14.5)
[2023-09-13 06:02] LABS: Blood Urea Nitrogen 19 mg/dl (9-20); Calcium 9.3 mg/dl (8.4-10.2); Carbon Dioxide 26 mmol/L (22-30); Chloride 103 mmol/L (98-107); Estimated Creatinine Clearance 122 ml/min; Glucose 119 mg/dl (70-99); Magnesium 2.1 mg/dl (1.6-2.3); Phosphorus 3.7 mg/dl (2.5-4.5); Potassium 4.2 mmol/L (3.5-5.1); Sodium 137 mmol/L (135-145); Vancomycin Trough 12.9 ug/ml (5-20); eGFR > 60.00
[2023-09-13] MEDS: VANCOCIN 275 MG IV (06:05)
[2023-09-13 07:00] VITALS: BP 116/69
[2023-09-13 07:45] VITALS: BMI 29.9
[2023-09-13] MEDS: NOVOLOG FLEXPEN-LOW RESISTANCE SC (08:31)
--- NOTE | 2023-09-13 09:45 | PHA.VAN.FU ---
Vancomycin Assessment / Plan
- Assessment
Renal Function: Stable
WBC's are: WNL
In the past 24 hrs, patient has been: Afebrile
Concomitant Antimicrobials: ceftriaxone
- Assessment - Therapeutic Drug Monitoring
Extrapolated Cmax (mcg/mL): 38.3
Peak level was drawn: Appropriately (drawn ~1.6H after end of previous infusion)
Extrapolated Cmin (mcg/mL): 11.6
Trough Drawn: Appropriately
Levels were drawn: At steady state (levels drawn after 3rd maintenance dose of current regimen)
Calculated AUC (mcg*h/mL): 545
Calculated ke: 0.1139
Calculated half life (H): 6.1
Calculated Vd (L): 40 (0.47)
Calculated Vanc CL (ml/min): 76
Patient with unusual vanc PK vs inaccuracy with one of the levels
Short half-life, low Vd, elevated Cmax
- Dosing Plan
Continue: Vanc 1250mg Q12H
Continue present regimen for now as trough and AUC appropriate
May require dose reduction to Vanc 1000mg Q12H, if continues to accumulate
- Monitoring Plan
No level(s) ordered at this time: consider repeat levels in next few days to re-assess regimen
- Follow Up
Pharmacy will continue to follow.
Vancomycin Follow UP
- -
Patient Age: 68
Patient Sex: Male
Vancomycin Day #: 3 (previously on 09/07 - 09/09 AM)
Indication: [facility]
Requesting Provider: Dr. Sutton
Pertinent Antimicrobial Allergies:
no pertinent antimicrobial allergies
Height / Weight:
Height 5 ft 7 in
Actual Weight 86.438 kg
Pertinent Past Medical History: BMI ~30, DM2
- Vital Signs / Lab Results
Temp Pulse Resp BP Pulse Ox
98.5 F 71 18 116/69 99
09/13/23 07:00 09/13/23 07:00 09/13/23 07:00 09/13/23 07:00 09/13/23 07:00
Lab Results - Hematology
09/11/23 09/12/23 09/13/23
09:15 06:25 05:22
WBC 6.4 5.8 6.0
Lab Results - Chemistry
09/11/23 09/12/23 09/13/23
09:15 06:25 05:22
BUN 19 18 19
Creatinine 0.7 0.7 0.6 L
Estimated Creat Clear 105 93 122
Microbiology Results
09/09/23 14:28 Blood Culture - Preliminary
Blood/Venous No Growth in 72 hours- Final report to follow
09/09/23 13:40 Blood Culture - Preliminary
Blood/Venous No Growth in 72 hours- Final report to follow
09/08/23 14:10 Wound Culture - Final
Elbow - Left Klebsiella pneumoniae
Eikenella corrodens
Diptheroids
Gram Stain - Final
Therapeutic Drug Monitoring
Vancomycin Peak 31.9 ug/ml (18-26) H 09/12/23 21:25
Vancomycin Trough 12.9 ug/ml (5-20) 09/13/23 05:22
--- NOTE | 2023-09-13 09:52 | W.PN.HOSP.TC ---
Today's Communication/Plan
-
monitor vitals
see plan
home abx teaching this afternoon at home
dc today
time of discharge 38 minutes
Assessment / Plan
Assessment / Plan
Physical Exam
General: No pallor, cyanosis, or jaundice.
HEENT: Throat clear. PERRLA Normocephalic atraumatic
NECK: Supple. No JVD Carotid Bruits
RESPIRATORY: Lungs clear to auscultation. No crackles wheezes stridor
CVS: S1, S2 normal. RRR.� No murmur, rub or gallop.
ABDOMEN: Soft, non-tender. No distension. BS+/normal.
EXTREMITIES: No peripheral cyanosis or edema. Left elbow dressing in place clean dry intact
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 Last injection 2 months ago. Reports
elbow oozing white purulent fluid for a few weeks. Referred to ED by PCP after office visit. ED XR concerning for possible osteomyelitis Soft tissue infection, possible septic arthritis/bursitis though less likely given overall clinical picture.�
VSS afebrile.� Non-toxic appearing.� Elbow pain mild.� Denies fever chills nausea vomiting diarrhea constipation.� Labs unremarkable.�
Left Elbow Wound
Possible Osteomyelitis
-X-ray suggestive osteomyelitis
-Orthopedics eval appreciated surgery and wound closure will likely need to wait until drainage subsides as continued drainage will not allow for wound healing
-Wound Cx appreciated Klebsiella and Eikenella
-ID following, now on Vanco and ceftriaxone, s/p PICC ordered, follow up with plastic surgery Dr Bucio recommended. per ID atleast 6 weeks of abx
-Left Upper Ext MRI compatible with chronic osteomyelitis of the entire olecranon.� No significant soft tissue abscess.� No significant intra-articular effusion.�
No surgical option recommended by orthopedics. Patient is instructed to follow-up with plastic surgery for wound closure outpatient.
Diabetes Mellitus, Type II
-HgbA1c 7.9
-Continue Lantus 35U HS, Low dose sliding scale
-Monitor sugars and continue coverage insulin
Chronic Heart Failure with Recovered EF
-Continue Toprol XL
BPH
-Continue Flomax
DVT proph: Lovenox
Anticipated Discharge: Today
Subjective/Interval History
-
Date of Service: September 13, 2023
denies pain
Objective Data
-
Labs:
Laboratory Results
09/13/23
05:22
WBC 6.0
Hgb 12.8 L
Hct 37.0 L
Plt Count 182
Sodium 137
Potassium 4.2
Chloride 103
Carbon Dioxide 26
BUN 19
Creatinine 0.6 L
Glucose 119 H
Calcium 9.3
Vital Signs:
Vital Signs
Temp Pulse Resp BP Pulse Ox
98.5 F 71 18 116/69 99
09/13/23 07:00 09/13/23 07:00 09/13/23 07:00 09/13/23 07:00 09/13/23 07:00
I&O
09/12/23 09/13/23 09/14/23
06:59 06:59 06:59
Intake Total 730 / 730 935 / 935
Balance 730 / 730 935 / 935
--- NOTE | 2023-09-13 10:17 | CM ---
CM spoke with Carmen from [facility] [place], faxed updated trough levels. Per ID, would like patient to get outpatient labs on Monday with trough, relayed to Carmen at [facility]. Patient for discharge today, [facility] will deliver/be out for teaching
this afternoon with . CM will continue to follow for discharge planning needs.
Plan; home with [facility] IV antibiotics.
== END 2023-09-13 10:36 | disposition home health service (06) | DRG 638 ==
LOC: 4 WEST ACU 16:22
PROVIDERS: Physician Assistant Medical; ADMITTING PHYSICIAN Internal Medicine; ATTENDING PHYSICIAN Internal Medicine; CONSULT PHYSICIAN Orthopaedic Surgery; CONSULT PHYSICIAN Student in an Organized Health Care Education/Training Program; EMERGENCY PHYSICIAN Emergency Medicine; FAMILY PHYSICIAN Family Medicine
DX: E11.69 Type 2 diabetes mellitus with other specified complication (principal); I50.32 Chronic diastolic (congestive) heart failure; M86.18 Other acute osteomyelitis, other site; Z79.4 Long term (current) use of insulin; N40.0 Benign prostatic hyperplasia without lower urinary tract symptoms
CPT/HCPCS: 71045; 73080; 73223; 80048; 80053; 80202; 82248; 82962; 83036; 83735; 84100; 85025; 85027; 85652; 86140; 87040; 87070; 87077; 87186; 87205; 96365; 96366; 96367; 99284; A9575

== ENCOUNTER → 2023-09-29 07:00 | Outpatient (REF) | payer OTHER, SELFPAY ==
[2023-09-29 07:55] LABS: ALT (SGPT) 35 U/L (0-50); AST (SGOT) 27 U/L (17-59); Albumin 3.9 g/dl (3.5-5.0); Alkaline Phosphatase 63 U/L (38-126); Blood Urea Nitrogen 26 mg/dl (9-20); Calcium 9.1 mg/dl (8.4-10.2); Carbon Dioxide 25 mmol/L (22-30); Chloride 105 mmol/L (98-107); Glucose 119 mg/dl (70-99); Potassium 4.5 mmol/L (3.5-5.1); Sodium 136 mmol/L (135-145); Total Bilirubin 0.5 mg/dl (0.2-1.3); Total Protein 6.9 g/dl (6.3-8.2); Vancomycin Trough 14.1 ug/ml (5-20); eGFR > 60.00
[2023-09-29 08:06] LABS: % Basophils 1.5 % (0-2); % Eosinophils 4.5 % (0-6); % Immature Granulocytes 0.2 % (0-0.5); % Lymphocytes 21.1 % (20.5-51.1); % Monocytes 14.8 % (1.7-9.3); % Neutrophils 57.9 % (42.2-75.2); Absolute Basophils 0.1 10^3/uL (0-0.2); Absolute Eosinophils 0.2 10^3/uL (0-0.7); Absolute Lymphocytes 1.1 10^3/uL (1.2-3.4); Absolute Monocytes 0.8 10^3/uL (0.1-0.6); Absolute Neutrophils 3.1 10^3/uL (1.4-6.5); Hematocrit 39.2 % (39.0-52.0); Hemoglobin 13.2 g/dL (13.0-18.0); Mean Corp Hgb Conc. 33.7 g/dL (33.0-37.0); Mean Corpuscular Volume 95.1 fL (80.0-94.0); Mean Platelet Volume 10.7 fL (7.4-10.4); Nucleated Red Blood Cells % 0 % (-); Platelet Count 182 10^3/uL (130-400); Red Blood Cell Count 4.12 10^6/uL (4.70-6.10); Red Cell Dist. Width 12.7 % (11.5-14.5); White Blood Cell Count 5.4 10^3/uL (4.8-10.8)
== END ==
LOC: REG 07:00
PROVIDERS: ATTENDING PHYSICIAN Student in an Organized Health Care Education/Training Program; FAMILY PHYSICIAN Family Medicine
DX: M70.32 Other bursitis of elbow, left elbow (principal)
CPT/HCPCS: 36415; 80053; 80202; 85025

== ENCOUNTER → 2023-10-06 12:18 | Outpatient (REF) | payer OTHER, SELFPAY | LOC: WOUND 12:18 | PROVIDERS: ATTENDING PHYSICIAN Surgery; FAMILY PHYSICIAN Family Medicine | DX: S51.002A Unspecified open wound of left elbow, initial encounter (principal); M86.622 Other chronic osteomyelitis, left humerus; E11.620 Type 2 diabetes mellitus with diabetic dermatitis; Z79.4 Long term (current) use of insulin; X58.XXXA Exposure to other specified factors, initial encounter | CPT/HCPCS: 11044; 99204 ==

== ENCOUNTER → 2023-10-16 14:49 | Outpatient (REF) | payer OTHER, SELFPAY | LOC: WOUND 14:49 | PROVIDERS: ATTENDING PHYSICIAN Surgery; FAMILY PHYSICIAN Family Medicine | DX: S51.002A Unspecified open wound of left elbow, initial encounter (principal); M86.622 Other chronic osteomyelitis, left humerus; E11.9 Type 2 diabetes mellitus without complications; E11.620 Type 2 diabetes mellitus with diabetic dermatitis; Z79.4 Long term (current) use of insulin; X58.XXXA Exposure to other specified factors, initial encounter | CPT/HCPCS: 99213 ==

== ENCOUNTER → 2023-10-23 08:47 | Outpatient (REF) | payer OTHER, SELFPAY | LOC: WOUND 08:47 | PROVIDERS: ATTENDING PHYSICIAN Surgery; FAMILY PHYSICIAN Family Medicine | DX: S51.002A Unspecified open wound of left elbow, initial encounter (principal); M86.622 Other chronic osteomyelitis, left humerus; E11.9 Type 2 diabetes mellitus without complications; E11.620 Type 2 diabetes mellitus with diabetic dermatitis; Z79.4 Long term (current) use of insulin; X58.XXXA Exposure to other specified factors, initial encounter | CPT/HCPCS: 11044 ==

== ENCOUNTER → 2023-10-30 08:34 | Outpatient (REF) | payer OTHER, SELFPAY | LOC: WOUND 08:34 | PROVIDERS: ATTENDING PHYSICIAN Surgery; FAMILY PHYSICIAN Family Medicine | DX: S51.002A Unspecified open wound of left elbow, initial encounter (principal); M86.622 Other chronic osteomyelitis, left humerus; E11.9 Type 2 diabetes mellitus without complications; E11.620 Type 2 diabetes mellitus with diabetic dermatitis; Z79.4 Long term (current) use of insulin; X58.XXXA Exposure to other specified factors, initial encounter | CPT/HCPCS: 99213 ==

== ENCOUNTER → 2023-11-16 08:31 | Outpatient (REF) | payer OTHER, SELFPAY | LOC: WOUND 08:31 | PROVIDERS: ATTENDING PHYSICIAN Surgery; FAMILY PHYSICIAN Family Medicine | DX: S51.002A Unspecified open wound of left elbow, initial encounter (principal); M86.622 Other chronic osteomyelitis, left humerus; Z79.4 Long term (current) use of insulin; E11.620 Type 2 diabetes mellitus with diabetic dermatitis; X58.XXXA Exposure to other specified factors, initial encounter | CPT/HCPCS: 99213 ==

== ENCOUNTER 2023-12-13 06:19 | Day surgery (SDC) | payer OTHER, SELFPAY ==
[2023-12-13] VITALS (10 sets, daily range): BP systolic 114–133; BP diastolic 61–87; BMI 31.4
[2023-12-13 07:14] LABS: Glucose - Point of Care 120 mg/dl (70-99)
[2023-12-13] MEDS: TYLENOL 1000 MG PO (07:24)
[2023-12-13] MEDS: NORMOSOL-R 1000 IV (07:24)
--- NOTE | 2023-12-13 07:44 | W.SUR.PREOP ---
Pre-Operative Surgical Note
-
I have examined this patient prior to the performance of the scheduled procedure.
The patient's condition is unchanged from the time of the current History and
Physical and the patient is able to undergo the scheduled procedure.
--- NOTE | 2023-12-13 08:51 | W.IMMPOSTOP ---
Surgical Immed Post Op Note
-
Primary Surgeon: ROSA Bucio MD
Assisting Surgeon:
Pre-op Diagnosis: Left elbow wound, osteomyelitis
Post-op Diagnosis: Same
Procedure Performed: Left elbow debridement to bone, complex closure
Anesthesia Type: General
Specimen / Cultures: Left elbow bone culture
Estimated Blood Loss: 10cc
Complications: None
Operative Findings: As expected
--- NOTE | 2023-12-13 08:51 | OR.RPT ---
Operative Report
Operative Report
Date of surgery: 12/13/2023
Surgeon: ROSA Bucio MD
Preoperative diagnosis: Left elbow wound, osteomyelitis
Postoperative diagnosis: Same
Procedure:
1. Excisional debridement to bone, left elbow, 6 x 3.5 cm
2. Complex wound closure left elbow 6.5 cm
Anesthesia: General
Specimens: Left elbow bone culture
Complications: None
EBL: 10 cc
Indication for procedure: Patient is a 68-year-old male with a longstanding history of skin and subcutaneous disorder of the left elbow. He subsequently developed an open wound and osteomyelitis. He is followed by infectious disease and was
treated with IV antibiotic therapy. He has completed this therapy and is left with an open wound of the left elbow. We discussed his options at length including complex closure and repeat bony debridement for determination of further antibiotic
therapy. Risk the procedure include recurrent wound, infection, bleeding, need for additional procedures. He understood these risk desired to proceed
Procedure in detail: Patient was identified preoperatively and the surgical site was confirmed to be left elbow. Consents were confirmed and all questions were answered. Patient was taken back to the operating room placed supine on the table.
Anesthesia was induced and LMA was placed. He was propped in lateral decubitus using a beanbag. Patient was then prepped and draped in the usual sterile fashion. Timeout for patient safety was performed was confirmed that preoperative antibiotics
have been administered bilateral SCDs were placed. Procedure began with the injection of 1% lidocaine with epinephrine and the surgical site. A elliptical excision around the prior wound was marked out to be 6 x 3.5 cm. This was performed with a
15 blade. Debridement continued with excisional approaches down to bone. A rongeur was used to debride the bone and sent for culture. Hemostasis was ensured and the wound was thoroughly irrigated. A [place] drain was left and sutured in place.
A complex closure was then performed over an area 6.5 cm. This was done with 2-0 Vicryl's followed by 2-0 nylon sutures. A bulky soft dressing was then placed over the elbow that prevented overt flexion. Patient was extubated taken the PACU for
further care. All counts were correct at the end the case. Case performed without complication.
[2023-12-13 09:02] LABS: Glucose - Point of Care 122 mg/dl (70-99)
[2023-12-13] MEDS: MOTRIN 600 MG PO (09:59)
== END 2023-12-13 10:45 | disposition home or self-care (01) ==
LOC: SDS 06:19
PROVIDERS: ATTENDING PHYSICIAN Surgery Plastic and Reconstructive Surgery
DX: S51.002A Unspecified open wound of left elbow, initial encounter (principal); B95.61 Methicillin susceptible Staphylococcus aureus infection as the cause of diseases classified elsewhere; X58.XXXA Exposure to other specified factors, initial encounter; M86.9 Osteomyelitis, unspecified
CPT/HCPCS: 11044; 13121; 82962; 87070; 87075; 87147; 87176; 87205; 93005